=== PATIENT | male | born 1975 | race Two or more races ===

== ENCOUNTER 2018-04-04 21:09 | Emergency (ER) | payer SELFPAY ==
[~2018-04-04] VITALS: Ht 172.7 cm; Wt 73.9 kg
[2018-04-04 21:25] VITALS: BP 159/76; Ht 172.7 cm; Wt 73.9 kg
== END 2018-04-04 23:16 | disposition home or self-care (01) ==
LOC: ED 21:09
DX: T78.1XXA Other adverse food reactions, not elsewhere classified, initial encounter (principal)
CPT/HCPCS: J1200; J7512